=== PATIENT | female | born 1960 | race Caucasian/White ===

== ENCOUNTER 2017-10-05 09:10 | Emergency (ER) | payer BC ==
[2017-10-05 09:19] VITALS: BP 134/80
--- NOTE | 2017-10-05 09:53 | UC ---
Eye Complaint HPI - HPI Summary HPI Summary: Patient presents to the with CC of bilateral conjunctival injection, excessive tearing, discharge with her eyes closed shut this morning, surrounding erythema without tenderness to the inferior or lateral eye. Recent illness. Denies any visual changes. - History of Current Complaint Chief Complaint: UCEye Stated Complaint: EYE COMPLAINT Time Seen by Provider: 10/05/17 09:20 Hx Obtained From: Patient ?: No Onset/Duration: Sudden Onset Timing: Constant Severity Initially: Severe Severity Currently: Severe Pain Intensity: 0 Location of Injury: Conjunctiva, Periorbital Aggravating Factor(s): Nothing Alleviating Factor(s): Nothing Associated Signs And Symptoms: Positive: Drainage (Purulent), Swelling - Risk Factors Penetrating Injury Risk Factor: Negative Globe Rupture Risk Factors: Negative Acute Glaucoma Risk Factors: Eye Inflammation - Allergies/Home Medications Allergies/Adverse Reactions: Allergies Allergy/AdvReac Type Severity Reaction Status Date / Time Sulfa (Sulfonamide Allergy hive Verified 10/05/17 09:15 Antibiotics) PMH/Surg Hx/FS Hx/Imm Hx Previously Healthy: Yes - Surgical History Surgical History: Yes Surgery Procedure, Year, and Place: foot - Family History Known Family History: Positive: Unknown - Social History Occupation: Employed Full-time Lives: With Family Alcohol Use: Occasionally Substance Use Type: None Smoking Status (MU): Never Smoked Tobacco Review of Systems Constitutional: Negative Skin: Negative Eyes: Drainage, Eye Redness ENT: Negative Respiratory: Cough Cardiovascular: Negative Musculoskeletal: Negative Neurological: Negative Psychological: Negative Is Patient Immunocompromised?: No All Other Systems Reviewed And Are Negative: Yes Physical Exam Triage Information Reviewed: Yes Appearance: Well-Nourished, Ill-Appearing Vital Signs: Initial Vital Signs Temp 96.8 F 10/05/17 09:16 Pulse 102 10/05/17 09:16 Resp 20 10/05/17 09:16 BP 134/80 10/05/17 09:16 Pulse Ox 100 10/05/17 09:16 Vital Signs Reviewed: No Eyes: Positive: Conjunctiva Inflamed, Discharge Neck exam: Normal Neck: Positive: Supple, No Lymphadenopathy Respiratory Exam: Normal Respiratory: Positive: Chest non-tender, Lungs clear Cardiovascular Exam: Normal Cardiovascular: Positive: RRR Musculoskeletal Exam: Normal Musculoskeletal: Positive: Strength Intact Psychological Exam: Normal Psychological: Positive: Normal Response To Family Skin Exam: Normal Eye Complaint Course/Dx - Course Course Of Treatment: Bilateral conjunctival infection with periorbital swelling. No eye entrapment, visual changes noted for concern for orbital cellulitis. She is given erythromycin ointment, allergy medication and tessalon for cough. - Differential Dx/Diagnosis Differential Diagnosis/HQI/PQRI: Conjunctivitis Provider Diagnoses: Bilateral bacterial conjunctivitis Discharge - Discharge Plan Condition: Stable Disposition: HOME Prescriptions: Benzonatate CAP* [Tessalon CAP*] 100 mg PO TID #21 cap Erythromycin OPTH OINT* [Erythromycin 0.5% OPTH OINT*] 1 applic BOTH EYES SEE INSTRUCTIONS #1 ophth.oint Loratadine [Claritin 10 MG CAP] 10 mg PO DAILY #15 cap Patient Education Materials: Conjunctivitis (ED) Forms: *Work Release Referrals: No Primary Care Phys,NOPCP [Primary Care Provider] - Additional Instructions: Apply the ointment to the eye 6 times daily Out of work x 2 days Claritin daily for at least 5 days Tessalon up to three times daily for cough
== END 2017-10-05 09:45 | disposition home or self-care (01) ==
LOC: UCEAST 09:10
DX: H10.023 Other mucopurulent conjunctivitis, bilateral (principal); Z88.2 Allergy status to sulfonamides
CPT/HCPCS: 99212; G0463